=== PATIENT | female | born 1965 | race Caucasian/White ===

== ENCOUNTER 2018-01-27 17:34 | Emergency (ER) | payer OTHER ==
[~2018-01-27] VITALS: Ht 157.5 cm; Wt 83.5 kg
[~2018-01-27 17:34] MED LIST: ALBU8.5H8 IH; BECL8.7A6 IH; BENAZEPRIL; CLON.5 PO; CLONIDINE; OMEP10 PO; PRAZ1 PO; SERT50TA12 PO; TRAZ-147 PO
[2018-01-27] MEDS ORDERED: IBUPROFEN 800 MG TABLET PO ONE (18:00)
[2018-01-27] MEDS ORDERED: PERTUSS(ACELL),DIPH,TET VAC/PF 0.5 ML VIAL IM ONE (18:00)
[2018-01-27] MEDS ORDERED: LIDOCAINE HCL 1% 10 ML VIAL INJ ONE (18:15)
[2018-01-27] MEDS ORDERED: BACITRACIN 0.9 GM PACKET OINTMENT TP ONE (19:00)
[2018-01-27 19:34] VITALS: BP 131/85
== END 2018-01-27 19:51 | disposition home or self-care (01) ==
LOC: EMS 17:35
DX: S61.213A Laceration without foreign body of left middle finger without damage to nail, initial encounter (principal); J45.909 Unspecified asthma, uncomplicated; K21.9 Gastro-esophageal reflux disease without esophagitis; I10 Essential (primary) hypertension; Z88.5 Allergy status to narcotic agent; Z88.8 Allergy status to other drugs, medicaments and biological substances; W26.0XXA Contact with knife, initial encounter; Y93.89 Activity, other specified; Y92.89 Other specified places as the place of occurrence of the external cause; Y99.8 Other external cause status
CPT/HCPCS: 12001; 90471; 90715; 99283; J3490; 12002

== ENCOUNTER 2019-01-10 18:21 | Emergency (ER) | payer OTHER ==
[~2019-01-10] VITALS: Ht 157.5 cm; Wt 69.1 kg
[~2019-01-10 18:21] MED LIST changes: -TRAZ-147 PO; +TRAZ-220 PO
[2019-01-10] MEDS ORDERED: GABA-533 PO (18:38)
[2019-01-10] MEDS ORDERED: LOSA25TA41 PO (18:38)
[2019-01-10] MEDS ORDERED: IBUP-2070 PO (18:38)
[2019-01-10 19:14] LABS: APPEARANCE,URINE CLEAR (CLEAR); BILIRUBIN,URINE NEGATIVE (NEGATIVE); GLUCOSE, URINE (UA) NEGATIVE (NEGATIVE); KETONES,URINE NEGATIVE (NEGATIVE); LEUKOCYTE ESTERASE ,URINE NEGATIVE (NEGATIVE); NITRATE,URINE NEGATIVE (NEGATIVE); OCCULT BLOOD,URINE NEGATIVE (NEGATIVE); PH,URINE 7.5 (5.0-8.0); PROTEIN,URINE TRACE (NEGATIVE); UROBILINOGEN,URINE 0.2 mg/dL (<=1.0)
[2019-01-10 19:57] LABS: BACTERIA,URINE Rare /HPF (None Seen); RBC,URINE 0-2 /HPF (0-2); SQUAMOUS EPITHELIAL CELL,UR Few /LPF (None Seen); WBC,URINE 0-2 /HPF (0-5)
[2019-01-10 20:08] VITALS: BP 145/101
[2019-01-10] MEDS ORDERED: METHOCARBAMOL 500 MG TABLET PO ONE (20:30)
[2019-01-10] MEDS ORDERED: KETOROLAC TROMETHAMINE 30 MG/ML VIAL IM ONE (20:30)
[2019-01-10] MEDS ORDERED: LIDOCAINE 5% TRANSDERMAL PATCH TD ONE (20:30)
== END 2019-01-10 20:54 | disposition home or self-care (01) ==
LOC: EMS 18:23
DX: M54.5 Low back pain (principal); I10 Essential (primary) hypertension; F41.9 Anxiety disorder, unspecified; J45.909 Unspecified asthma, uncomplicated; K21.9 Gastro-esophageal reflux disease without esophagitis; F32.9 Major depressive disorder, single episode, unspecified; Z90.49 Acquired absence of other specified parts of digestive tract; Z88.8 Allergy status to other drugs, medicaments and biological substances; Z88.5 Allergy status to narcotic agent
CPT/HCPCS: 72100; 81001; 96372; 99284; J1885

== ENCOUNTER 2021-02-18 13:52 | Emergency (ER) | payer MEDICAID, OTHER ==
[~2021-02-18] VITALS: Ht 134.6 cm; Wt 85.7 kg
[~2021-02-18 13:52] MED LIST changes: -BENAZEPRIL; +CLON-592 PO; -CLON.5 PO; -CLONIDINE; +GABA-1201 PO; +IBUP-2070 PO; +LOSA25TA21 PO; -PRAZ1 PO; +SERT-158 PO; -SERT50TA12 PO; -TRAZ-220 PO
[2021-02-18 14:13] VITALS: BP 140/85
[2021-02-18] MEDS ORDERED: DiphenhydrAMINE HCL 25 MG/10 ML ELIXIR UDCUP PO ONE (14:30)
[2021-02-18] MEDS ORDERED: MethylPREDNISolone SOD SUCC 125 MG/2 ML VIAL IM ONE (14:30)
== END 2021-02-18 15:37 | disposition home or self-care (01) ==
LOC: EMS 14:00
DX: J45.909 Unspecified asthma, uncomplicated (principal); F32.9 Major depressive disorder, single episode, unspecified
CPT/HCPCS: 96372; 99283; J2930